=== PATIENT | male | born 1965 | race Caucasian/White ===

== ENCOUNTER 2021-08-19 15:30 | Emergency (ER) | payer BC, MEDICAID ==
[2021-08-19 17:03] LABS: HEMOGLOBIN 16.5 gm/dl (14.0-17.5); RED BLOOD COUNT 4.81 M/UL (4.20-5.50); WHITE BLOOD COUNT 4.8 K/UL (4.5-11.0)
[2021-08-19 17:54] LABS: BUN/CREATININE RATIO 19 (0-10)
[2021-08-19] MEDS ORDERED: CATAPRES 0.1MG0.1 MG PO (19:13)
== END 2021-08-19 20:00 | disposition home or self-care (01) ==
LOC: ER1 15:30
PROVIDERS: Preventive Medicine Occupational Medicine
DX: R07.89 Other chest pain (principal); I10 Essential (primary) hypertension; Z20.822 Contact with and (suspected) exposure to COVID-19
CPT/HCPCS: 0240U; 71045; 80053; 82550; 82553; 83690; 83880; 84484; 85025; 85379; 86140; 93005; 99284